=== PATIENT | male | born 1970 | race African-American/Black ===

== ENCOUNTER 2021-08-07 20:01 | Emergency (ER) | payer OTHER, SELFPAY ==
[2021-08-07 20:03] VITALS: BP 150/99; PULSE 94; RESP 16; TEMP 36.7; O2SAT 100; BMI 27.0
--- NOTE | 2021-08-07 20:40 | PC.NURSE ---
Obtained vitals on pt. Stable at this time.
--- NOTE | 2021-08-07 21:17 | CT_ITS ---
PROCEDURE INFORMATION: Exam: CT Abdomen And Pelvis Without Contrast Exam date and time: 08/07/2021 9:33 PM Age: 51 years old Clinical indication: Abdominal pain; Generalized; Additional info: Abd pain TECHNIQUE: Imaging protocol: Computed tomography of the abdomen and pelvis without contrast. Radiation optimization: All CT scans at this facility use at least one of these dose optimization techniques: automated exposure control; mA and/or kV adjustment per patient size (includes targeted exams where dose is matched to clinical indication); or iterative reconstruction. COMPARISON: CR AFU ABDOMEN-FLAT UPRIGHT 05/02/2016 4:46 PM FINDINGS: Lungs: Tiny calcified granuloma right middle lobe. Diaphragm: Sliding hiatal hernia. Liver: Normal. No mass. Gallbladder and bile ducts: Normal. No calcified stones. No ductal dilation. Pancreas: Normal. No ductal dilation. Spleen: Normal. No splenomegaly. Adrenal glands: Normal. No mass. Kidneys and ureters: Punctate nonobstructing calyceal calcifications right kidney. Stomach and bowel: Unremarkable. No obstruction. No mucosal thickening. Appendix: The appendix appears normal. Intraperitoneal space: Unremarkable. No free air. No significant fluid collection. Vasculature: Unremarkable. No abdominal aortic aneurysm. Lymph nodes: Unremarkable. No enlarged lymph nodes. Urinary bladder: Unremarkable as visualized. Reproductive: Unremarkable as visualized. Bones/joints: Unremarkable. No acute fracture. Soft tissues: Small fat containing umbilical hernia. IMPRESSION: 1. Punctate nonobstructing calyceal calcifications right kidney. 2. Sliding hiatal hernia. 3. Small fat containing umbilical hernia.
[2021-08-07 21:31] LABS: Basophils # 0.1 K/mm3 (0-0.2); Basophils % 1.2 % (0.1-2.0); Eosinophils # 0.2 K/mm3 (0.0-0.4); Eosinophils % 1.6 % (0.1-12.0); Hematocrit 48.4 % (42.0-52.0); Lymphocytes % 11.3 % (10-50); Mean Corpuscular Hemoglobin 29.7 pg (27.0-31.2); Mean Corpuscular Volume 90.1 fl (80-94); Mean Platelet Volume 8.6 fl (7.4-10.4); Monocytes # 0.3 K/mm3 (0.1-1.0); Monocytes % 3.1 % (1.7-9.3); Neutrophils # 7.7 K/mm3 (1.8-7.8); Neutrophils % 82.7 % (37.0-80.0); Platelet Count 280 K/mm3 (142-424); Red Blood Count 5.37 M/mm3 (4.60-6.20); Red Cell Distribution Width 13.1 % (11.5-17.5); White Blood Count 9.2 K/mm3 (4.8-10.8)
[2021-08-07 21:40] LABS: Alanine Aminotransferase 26 U/L (12-78); Albumin Level 4.7 g/dl (3.5-5.0); Albumin/Globulin Ratio 1.3 (1.1-1.8); Alkaline Phosphatase 71 U/L (38-126); Amylase 180 U/L (30-110); Anion Gap 16.5 mEq/L (5-15); Aspartate Amino Transferase 37 U/L (17-59); Bilirubin,Total 0.9 mg/dl (0.2-1.3); Blood Urea Nitrogen 13 mg/dl (9-20); Calcium 9.8 mg/dl (8.4-10.2); Carbon Dioxide 26 mmol/L (22.0-30.0); Chloride 100 mmol/L (98-107); Creatinine Clearance Estimated 115 mL/min (50-200); Estimated Glomerular Filt Rate 64 ml/min (>60); GFR (African American) 78 ML/MIN (>60); Globulin 3.7 g/dL (1.3-3.2); Glucose 136 mg/dl (74-100); Lipase 38 U/L (23-300); Potassium 3.5 mmoL/L (3.5-5.1); Sodium 139 mmol/L (136-145); Total Protein,Serum 8.4 g/dl (6.3-8.2)
[2021-08-07 21:45] LABS: C-Reactive Protein 23.1 mg/L (0-4)
[2021-08-07 21:56] LABS: Microscopic, Urine URINE MICROSCOPIC (MICROSCOPIC)
[2021-08-07 21:59] LABS: Procalcitonin 0.063 ng/mL (0.0-2.0)
[2021-08-07 22:08] LABS: Appearance,Urine CLEAR (Clear); Blood, Urine Negative (Negative); Color,Urine YELLOW (Yellow); Glucose,Urine (UA) Negative (Negative); Ketones,Urine 3+ (Negative); Leukocyte Esterase,Urine Negative (Negative); Nitrate,Urine Negative (Negative); Protein,Urine 2+ (Negative)
[2021-08-07 22:11] LABS: Bilirubin,Urine 1+ (Negative)
[2021-08-07 22:15] VITALS: BP 171/98; PULSE 69; O2SAT 100
[2021-08-07 22:17] LABS: Bacteria,Urine Trace /lpf; Mucus,Urine 1+ /lpf
[2021-08-07 22:22] LABS: Erythrocyte Sedimentation Rate 5 mm/hr (0-15)
--- NOTE | 2021-08-08 00:03 | PC.NURSE ---
Pt resting well.
--- NOTE | 2021-08-08 01:21 | [facility].EDNVD ---
ED Disposition Clinical Impression: Gastritis Qualifiers: Gastritis type: unspecified gastritis Chronicity: acute Gastritis bleeding: without bleeding Qualified Code(s): K29.00 - Acute gastritis without bleeding Disposition: Home, Self-Care Condition on Discharge: Good Instructions: DI for Acute Abdominal Pain Additional Instructions: see pcp for follow up Referrals: Breanna Jarrell APRN [Primary Care Provider] - - Critical Care Critical Care Time: No Attestation: On 08/07/21, the high probability of a clinically significant, sudden or life threatening deterioration of the following system(s) required my full and direct attention, intervention and personal management. The time I documented below is in addition to time spent performing reported procedures but includes the following listed in this critical care notation. Medical Decision Making - Medical Records Medical records reviewed: Yes: I reviewed the patient's medical records. - Erich Inquiry Pt receiving controlled substance: No Vital Signs: 08/07/21 20:03 08/07/21 22:15 Temperature 98.0 F Temperature Source Oral Pulse Rate 69 Pulse Rate [Right] 94 H Respiratory Rate 16 Blood Pressure 171/98 H Blood Pressure [Right Arm] 150/99 H Blood Pressure Mean [Right Arm] 116 02 Sat by Pulse Oximetry 100 100 Oxygen Delivery Method Room Air Room Air - Lab Data Lab results reviewed: Yes: I reviewed the patient's lab results. Lab Results 08/07/21 21:15: WBC 9.2, RBC 5.37, Hgb 16.0, Hct 48.4, MCV 90.1, MCH 29.7, MCHC 33.0, RDW 13.1, Plt Count 280, MPV 8.6, Neut % (Auto) 82.7 H, Lymph % (Auto) 11.3, [place] % (Auto) 3.1, Eos % (Auto) 1.6, Baso % (Auto) 1.2, Neut # (Auto) 7.7, Lymph # (Auto) 1.0, [place] # (Auto) 0.3, Eos # (Auto) 0.2, Baso # (Auto) 0.1, ESR 5 08/07/21 21:15: Sodium 139, Potassium 3.5, Chloride 100, Carbon Dioxide 26, Anion Gap 16.5 H, BUN 13, Creatinine 1.20, Estimated Creat Clear 115, Estimated GFR 64, Est GFR ( Amer) 78, Glucose 136 H, Calcium 9.8, Total Bilirubin 0.9, AST 37, ALT 26, Alkaline Phosphatase 71, C-Reactive Protein 23.1 H, Total Protein 8.4 H, Albumin 4.7, Globulin 3.7 H, Albumin/Globulin Ratio 1.3, Amylase 180 H, Lipase 38, Procalcitonin 0.063 08/07/21 21:51: Urine Color Yellow, Urine Appearance Clear, Urine pH 8.0, Ur Specific [place] 1.010, Urine Protein 2+, Urine Glucose (UA) Negative, Urine Ketones 3+, Urine Blood Negative, Urine Nitrate Negative, Urine Bilirubin 1+ A, Urine Urobilinogen 4.0, Ur Leukocyte Esterase Negative, Urine RBC 10-20, Urine WBC None, Ur Squamous Epith Cells 3-5, Urine Bacteria Trace, Urine Mucus 1+ Result diagrams: 08/07/21 21:15 08/07/21 21:15 Orders (Tests/Meds): ED MEDICATIONS Generic Name Dose Route Start Last Admin Trade Name Freq PRN Reason Stop Dose Admin Sodium Chloride 1,000 mls @ 999 mls/hr 08/07/21 21:30 08/07/21 21:45 Sod Chlor 0.9% 1000ml Bag IV 08/07/21 22:30 999 mls/hr .[id number] RACHEL Administration Sodium Chloride 8 ml 08/07/21 21:19 Sodium Chloride 0.9% 10ml Vial IV 09/06/21 21:18 NEEDED PRN dilute pepcid Discontinued Medications Generic Name Dose Route Start Last Admin Trade Name Freq PRN Reason Stop Dose Admin Famotidine 20 mg 08/07/21 21:19 08/07/21 21:44 Famotidine 20mg/2ml Vial IV 08/07/21 21:20 20 mg ONCE ONE Administration Ketorolac Tromethamine 30 mg 08/07/21 21:19 08/07/21 21:44 Ketorolac 30mg/Ml Vial IV 08/07/21 21:20 30 mg ONCE ONE Administration Metoclopramide HCl 10 mg 08/07/21 21:19 08/07/21 21:45 Metoclopramide Hcl 10mg/2ml Vial IVP 08/07/21 21:20 10 mg ONCE ONE Administration Ondansetron HCl 4 mg 08/07/21 21:19 08/07/21 21:45 Ondansetron 4mg/2ml Vial IV 08/07/21 21:20 4 mg ONCE ONE Administration - CT Data CT Scan: Abdomen, Pelvis Time Received: 01:[address] Reviewed: Yes: I have viewed the radiologist's interpretation Preliminary Findings: Normal/NAD - Reevaluation
[2021-08-08 01:32] VITALS: BP 134/78; PULSE 64; RESP 18; TEMP 36.7; O2SAT 99
== END 2021-08-08 01:33 | disposition home or self-care (01) ==
PROVIDERS: Emergency Provider Emergency Medicine; PCP Nurse Practitioner Family
DX: K29.00 Acute gastritis without bleeding (principal)
CPT/HCPCS: 74176; 80053; 81001; 82150; 83690; 84145; 85025; 85651; 86140; 96361; 96374; 96375; 99284; J2405